=== PATIENT | male | born 1965 | race Caucasian/White ===

== ENCOUNTER 2018-11-24 14:51 | Emergency (ER) | payer MEDICARE, MEDICAID ==
[~2018-11-24] VITALS: Ht 182.9 cm; Wt 81.6 kg
--- NOTE | 2018-11-24 15:01 | NUR ---
BIB BY SELF 53 YEAR OLD MALE C/O COUGH X2 MONTHS, SOB WORSE AT NIGHT, BODY ACHES, WEAKNESS. ALERT AND ORIENTED X4, BREATHING EVEN AND UNLABORED. SKIN WARM TO [facility] AND INTACT. AWAITING TO BE SEEN BY .
[2018-11-24] MEDS ORDERED: ACETAMINOPHEN ES 500 MG TABLET ONE (16:17)
[2018-11-24] MEDS ORDERED: ACETAMINOPHEN ES 500 MG TABLET PO ONE (16:30)
--- NOTE | 2018-11-24 17:13 | NUR ---
Patient discharged to home in stable condition. Written and verbal after care instructions given. Patient verbalizes understanding of instruction.
[2018-11-24 17:15] VITALS: BP 140/80
== END 2018-11-24 17:17 | disposition home or self-care (01) ==
LOC: ER 14:57
DX: J40 Bronchitis, not specified as acute or chronic (principal); I12.0 Hypertensive chronic kidney disease with stage 5 chronic kidney disease or end stage renal disease; N18.6 End stage renal disease; Z99.2 Dependence on renal dialysis; Z94.0 Kidney transplant status
CPT/HCPCS: 71046; 99283; A4606

== ENCOUNTER 2024-11-29 12:28 | Inpatient (IN) | payer MEDICARE, OTHER ==
[~2024-11-29] VITALS: Ht 172.7 cm; Wt 84.4 kg
[2024-11-29] MEDS ORDERED: GELATIN SPONGE,ABSORBABLE 1 SPONGE SPONGE TP ONE (15:11)
[2024-11-29] MEDS: GELATIN SPONGE,ABSORBABLE 1 SPONGE SPONGE TP ONE (15:34)
[2024-11-29] MEDS ORDERED: CARV12.52 PO (15:59)
[2024-11-29] MEDS ORDERED: SEVE800T28 PO (15:59)
[2024-11-29] MEDS ORDERED: HYDR-4076 PO (15:59)
[2024-11-29] MEDS ORDERED: TAMS-12 PO (15:59)
[2024-11-29] MEDS ORDERED: ERGO500093 PO (15:59)
[2024-11-29] MEDS ORDERED: FAMO20TA8 PO (15:59)
[2024-11-29] MEDS ORDERED: ATOR20TA PO (15:59)
[2024-11-29 16:07] LABS: BASOPHILS % (AUTO) 1.1 % (0.0-2.0); EOSINOPHILS % (AUTO) 3.5 % (0.0-6.0); HEMATOCRIT 31 % (39-51); HEMOGLOBIN 10.5 g/dL (13.5-17.5); LYMPHOCYTES % (AUTO) 34.1 % (20.0-44.0); MEAN CORPUSCULAR HEMOGLOBIN 33 PG (26.0-33.0); MEAN CORPUSCULAR HGB CONC 34 g/dl (31.0-36.0); MEAN CORPUSCULAR VOLUME 96 fL (80-96); MONOCYTES % (AUTO) 12.8 % (2.0-12.0); NEUTROPHILS % (AUTO) 48.5 % (43.0-81.0); PLATELET COUNT (AUTO) 156 K/uL (150-450); RED BLOOD CELL COUNT(AUTO) 3.23 MIL/uL (4.5-6.0); RED CELL DISTRIBUTION WIDTH 13.4 % (11.5-15.0); WHITE BLOOD COUNT (AUTO) 5.3 K/uL (4.3-11.0)
[2024-11-29 16:08] LABS: BASOPHILS # (AUTO) 0.1 K/uL (0.0-0.2); EOSINOPHILS # (AUTO) 0.2 K/uL (0.0-0.7); LYMPHOCYTES # (AUTO) 1.8 K/uL (0.8-4.8); MONOCYTES # (AUTO) 0.7 K/uL (0.1-1.30); NEUTROPHILS # (AUTO) 2.5 K/uL (1.8-8.9)
[2024-11-29 16:23] LABS: CALCIUM, SERUM 8.6 mg/dL (8.5-10.1)
[2024-11-29 16:26] LABS: CREATININE 13.4 mg/dL (0.6-1.3); POTASSIUM 6.6 mmol/L (3.5-5.1)
[2024-11-29] MEDS ORDERED: ERGOCALCIFEROL (VITAMIN D 2) 50,000 UNIT CAPSULE PO SCH (16:30)
[2024-11-29 16:35] LABS: ALBUMIN 3.4 g/dL (3.4-5.0); BILIRUBIN,TOTAL 0.9 mg/dL (0.2-1.0); TOTAL PROTEIN, SERUM 7.7 g/dL (6.4-8.2)
[2024-11-29] MEDS ORDERED: SODIUM BICARBONATE SYR 50 MEQ/50 ML DISP.SYRIN ONE (16:46)
[2024-11-29] MEDS ORDERED: CALCIUM CHLORIDE 1,000 MG/10 ML DISP.SYRIN ONE (16:46)
[2024-11-29] MEDS ORDERED: SODIUM ZIRCONIUM CYCLOSILICATE 10 GM POWD.PACK ONE (16:46)
[2024-11-29] MEDS ORDERED: ALBUTEROL FS 2.5 MG/3 ML VIAL.NEB ONE (16:48)
[2024-11-29 16:50] VITALS: O2SAT 100
[2024-11-29] MEDS ORDERED: SODIUM POLYSTYRENE SULFONATE 15 G/60 ML BOTTLE ONE (16:50)
[2024-11-29] MEDS: ALBUTEROL FS 2.5 MG/3 ML VIAL.NEB CONTNEB ONE (16:50)
[2024-11-29] MEDS ORDERED: Z GUARD REMEDY 4 OZ OINT TP PRN (17:00)
[2024-11-29] MEDS ORDERED: FUROSEMIDE 40 MG/4 ML VIAL IV ONE (17:00)
[2024-11-29] MEDS: CALCIUM CHLORIDE 1,000 MG/10 ML DISP.SYRIN IV ONE (17:00)
[2024-11-29] MEDS: DEXTROSE 50%-WATER 50 ML DISP.SYRIN IVP ONE (17:00)
[2024-11-29] MEDS: SODIUM BICARBONATE SYR 50 MEQ/50 ML DISP.SYRIN IV ONE (17:00)
[2024-11-29] MEDS ORDERED: ONDANSETRON HCL/PF 4 MG/2 ML VIAL IVP PRN (17:00)
[2024-11-29] MEDS ORDERED: INSULIN REGULAR, HUMAN 100 UNIT/ML 10 ML VIAL IV ONE (17:00)
[2024-11-29] MEDS ORDERED: DEXTROSE 50%-WATER 50 ML DISP.SYRIN IV ONE (17:00)
[2024-11-29] MEDS: INSULIN REGULAR, HUMAN 100 UNIT/ML 10 ML VIAL IV ONE (17:00)
[2024-11-29] MEDS ORDERED: MAG HYDROX/AL HYDROX/SIMETH 30 ML UDC PO PRN (17:00)
[2024-11-29] MEDS ORDERED: ACETAMINOPHEN 325 MG TABLET PO PRN (17:00)
[2024-11-29] MEDS ORDERED: MAGNESIUM HYDROXIDE 30 ML UDC PO PRN (17:00)
[2024-11-29] MEDS ORDERED: HYDROCODONE/APAP 5/325MG TABLET PO PRN (17:00)
[2024-11-29] MEDS: SODIUM ZIRCONIUM CYCLOSILICATE 10 GM POWD.PACK PO ONE (17:01)
[2024-11-29 17:05] VITALS: O2SAT 100
[2024-11-29] MEDS ORDERED: LIDOCAINE 0.5%-EPI 1:200,000 50 ML VIAL ONE (17:05)
[2024-11-29] MEDS: SODIUM POLYSTYRENE SULFONATE 15 G/60 ML BOTTLE PO ONE (17:22)
[2024-11-29] MEDS: CARVEDILOL 12.5 MG TABLET PO SCH (19:12)
[2024-11-29] MEDS: hydrALAZINE HCL 25 MG TABLET PO SCH (19:12)
[2024-11-29] MEDS: SEVELAMER CARBONATE 800 MG TABLET PO SCH (19:24)
[2024-11-29] MEDS: FAMOTIDINE (20 MG) 20 MG TABLET PO SCH (19:24)
[2024-11-29 20:00] VITALS: BP 136/89; TEMP 97.9; O2SAT 96
[2024-11-29] MEDS: TAMSULOSIN 0.4 MG CAP.SR.24H PO SCH (21:50)
[2024-11-29] MEDS: ATORVASTATIN 10 MG TABLET PO SCH (21:51)
[2024-11-30] VITALS: BP 150/85; TEMP 97.9; O2SAT 97
[2024-11-30 04:00] VITALS: BP 124/76; TEMP 98.2; O2SAT 95
[2024-11-30 07:25] LABS: BASOPHILS % (AUTO) 0.6 % (0.0-2.0); EOSINOPHILS # (AUTO) 0.2 K/uL (0.0-0.7); EOSINOPHILS % (AUTO) 4.5 % (0.0-6.0); HEMATOCRIT 27 % (39-51); HEMOGLOBIN 9.3 g/dL (13.5-17.5); LYMPHOCYTES # (AUTO) 1.7 K/uL (0.8-4.8); MEAN CORPUSCULAR HEMOGLOBIN 33 PG (26.0-33.0); MEAN CORPUSCULAR HGB CONC 34 g/dl (31.0-36.0); MEAN CORPUSCULAR VOLUME 96 fL (80-96); MONOCYTES # (AUTO) 0.6 K/uL (0.1-1.30); MONOCYTES % (AUTO) 12.3 % (2.0-12.0); NEUTROPHILS # (AUTO) 2.6 K/uL (1.8-8.9); NEUTROPHILS % (AUTO) 49.6 % (43.0-81.0); PLATELET COUNT (AUTO) 135 K/uL (150-450); RED BLOOD CELL COUNT(AUTO) 2.84 MIL/uL (4.5-6.0); WHITE BLOOD COUNT (AUTO) 5.3 K/uL (4.3-11.0)
[2024-11-30] MEDS: PANTOPRAZOLE 40 MG TABLET.DR PO SCH (07:30)
[2024-11-30 07:50] LABS: CALCIUM, SERUM 8.3 mg/dL (8.5-10.1); MAGNESIUM 2.5 mg/dL (1.8-2.4); PHOSPHORUS 6.3 mg/dL (2.5-4.9)
[2024-11-30 07:52] LABS: CREATININE 14.7 mg/dL (0.6-1.3)
[2024-11-30 08:00] VITALS: BP 146/87; TEMP 97.9; O2SAT 97
[2024-11-30] MEDS ORDERED: ANESTHESIA TRAY IN PYXIS 1 EA TRAY MC ONE (09:48)
[2024-11-30] MEDS ORDERED: HEPARIN SODIUM, PORCINE 1,000 UNIT/ML VIAL ONE (09:49)
[2024-11-30] MEDS ORDERED: ROPIVACAINE HCL 0.5% 5 MG/ML 30ML VIAL ONE (09:49)
[2024-11-30] MEDS ORDERED: LIDOCAINE HCL/MPF 1% 30 ML VIAL IJ ONE (09:49)
[2024-11-30] MEDS ORDERED: CELLULOSE,OXIDIZED 1 EA PACK MC ONE (09:49)
[2024-11-30] MEDS ORDERED: CELLULOSE,OXIDIZED 1 EACH EACH MC ONE (09:50)
[2024-11-30] MEDS ORDERED: CELLULOSE,OXIDIZED 1 PKT EACH MC ONE (09:50)
[2024-11-30] MEDS ORDERED: LABETALOL HCL IV 100MG VIAL ONE (12:32)
[2024-11-30] MEDS ORDERED: HEPARIN SODIUM, PORCINE 5000 UNITS/1 ML VIAL ONE (13:03)
[2024-11-30] MEDS ORDERED: POLYMYXIN B SULFATE 500,000 UNITS ONE (14:10)
[2024-11-30] MEDS ORDERED: protAMINE SULFATE 10 MG/ML VIAL IV ONE (14:12)
[2024-11-30] MEDS: HYDROCODONE/APAP 5/325MG TABLET PO PRN (15:53)
[2024-11-30 16:00] VITALS: BP 145/83; TEMP 97.3; O2SAT 97
[2024-11-30] MEDS: ANCEF 1 GM/50 ML D5W IV SCH (19:59)
[2024-11-30 20:00] VITALS: BP 102/67; TEMP 97.9; O2SAT 99
[2024-12-01] VITALS: BP 113/70; TEMP 98.1; O2SAT 99
[2024-12-01 04:00] VITALS: BP 130/76; TEMP 98.2; O2SAT 96
[2024-12-01 07:22] LABS: CALCIUM, SERUM 8.2 mg/dL (8.5-10.1); POTASSIUM 4.9 mmol/L (3.5-5.1)
[2024-12-01 08:00] VITALS: BP 130/83; TEMP 98.4; O2SAT 95
[2024-12-01 08:05] LABS: CREATININE 12.7 mg/dL (0.6-1.3)
[2024-12-01 08:26] VITALS: BP 135/76
[2024-12-02 04:10] LABS: HEPATITIS B CORE AB, TOTAL Negative (Negative); HEPATITIS B SURFACE AB Non Reactive (.)
== END 2024-12-01 13:32 | disposition home health service (06) | DRG 252 ==
LOC: ER 12:28 → MEDSG1 17:37 → TELE1 17:41
PROVIDERS: ADMIT Nurse Practitioner Acute Care; ATTEND Student in an Organized Health Care Education/Training Program
PROC: 05LY0ZZ Occlusion of Upper Vein, Open Approach (ICD-10-PCS; 2024-11-29)
PROC: 05WY0JZ Revision of Synthetic Substitute in Upper Vein, Open Approach (ICD-10-PCS; principal; 2024-11-30)
PROC: 03WY0JZ Revision of Synthetic Substitute in Upper Artery, Open Approach (ICD-10-PCS; 2024-11-30)
PROC: 5A1D70Z Performance of Urinary Filtration, Intermittent, Less than 6 Hours Per Day (ICD-10-PCS; 2024-11-30)
DX: T82.838A Hemorrhage due to vascular prosthetic devices, implants and grafts, initial encounter (principal); N18.6 End stage renal disease; I12.0 Hypertensive chronic kidney disease with stage 5 chronic kidney disease or end stage renal disease; Y71.2 Prosthetic and other implants, materials and accessory cardiovascular devices associated with adverse incidents; Z99.2 Dependence on renal dialysis; Y84.8 Other medical procedures as the cause of abnormal reaction of the patient, or of later complication, without mention of misadventure at the time of the procedure; Y92.89 Other specified places as the place of occurrence of the external cause; E78.5 Hyperlipidemia, unspecified; E87.5 Hyperkalemia; N40.0 Benign prostatic hyperplasia without lower urinary tract symptoms; Z79.899 Other long term (current) drug therapy; D63.8 Anemia in other chronic diseases classified elsewhere; D50.0 Iron deficiency anemia secondary to blood loss (chronic); N25.0 Renal osteodystrophy
CPT/HCPCS: 36415; 80048-TC; 80053-TC; 82962-TC; 83735-TC; 84100-TC; 85025-TC; 86704; 86706; 87340; 90935-TC; 94799-TC; A4223; C1768; C1769; G0378; J0360; J0690; J1200; J1644; J1815; J2704; J2720; J2795; J3490; J7030; J7050; J7060

== ENCOUNTER 2025-01-04 14:02 | Emergency (ER) | payer MEDICARE, OTHER ==
[~2025-01-04] VITALS: Ht 182.9 cm; Wt 86.6 kg
[~2025-01-04 14:02] MED LIST: ATOR20TA PO; CARV12.52 PO; ERGO500093 PO; FAMO20TA8 PO; HYDR-4076 PO; SEVE800T28 PO; TAMS-12 PO
[2025-01-04 15:20] LABS: BASOPHILS # (AUTO) 0.1 K/uL (0.0-0.2); BASOPHILS % (AUTO) 1.1 % (0.0-2.0); EOSINOPHILS # (AUTO) 0.1 K/uL (0.0-0.7); EOSINOPHILS % (AUTO) 2.8 % (0.0-6.0); HEMATOCRIT 26 % (39-51); HEMOGLOBIN 9.3 g/dL (13.5-17.5); LYMPHOCYTES # (AUTO) 0.8 K/uL (0.8-4.8); LYMPHOCYTES % (AUTO) 14.6 % (20.0-44.0); MEAN CORPUSCULAR HEMOGLOBIN 34 PG (26.0-33.0); MEAN CORPUSCULAR HGB CONC 35 g/dl (31.0-36.0); MEAN CORPUSCULAR VOLUME 97 fL (80-96); MONOCYTES # (AUTO) 0.7 K/uL (0.1-1.30); MONOCYTES % (AUTO) 13.5 % (2.0-12.0); NEUTROPHILS # (AUTO) 3.7 K/uL (1.8-8.9); PLATELET COUNT (AUTO) 127 K/uL (150-450); RED BLOOD CELL COUNT(AUTO) 2.72 MIL/uL (4.5-6.0); RED CELL DISTRIBUTION WIDTH 13.6 % (11.5-15.0); WHITE BLOOD COUNT (AUTO) 5.4 K/uL (4.3-11.0)
[2025-01-04 15:31] LABS: CALCIUM, SERUM 8.4 mg/dL (8.5-10.1); CARBON DIOXIDE 25 mmol/L (21-32); CHLORIDE 104 mmol/L (98-107); GLUCOSE 95 mg/dL (74-106); POTASSIUM 5.5 mmol/L (3.5-5.1); SODIUM SERUM 142 mmol/L (136-145); UREA NITROGEN, BLOOD 37 mg/dL (7-18)
[2025-01-04] MEDS ORDERED: ACETAMINOPHEN 650 MG/20.3 ML UDC ONE (15:40)
[2025-01-04 15:43] LABS: ALANINE AMINOTRANSFERASE 21 U/L (12-78); ALBUMIN 3.6 g/dL (3.4-5.0); ALKALINE PHOSPHATASE 373 U/L (46-116); ASPARTATE AMINOTRANSFERASE 24 U/L (15-37); BILIRUBIN,DIRECT 0.4 mg/dL (0.0-0.2); BILIRUBIN,TOTAL 1.1 mg/dL (0.2-1.0); NT-PRO BNP 21190 pg/mL (0-125)
[2025-01-04] MEDS: ACETAMINOPHEN 650 MG/20.3 ML UDC PO ONE (15:51)
[2025-01-04 16:05] LABS: BASOPHILS % (MANUAL) 0 % (0.0-2.0); EOSINOPHILS % (MANUAL) 0 % (0-4); LYMPHOCYTES % (MANUAL) 17 % (16-48); MONOCYTES % (MANUAL) 10 % (0-11.0); NEUTROPHILS % (MANUAL) 73 (42-76)
[2025-01-04 16:08] LABS: PLATELET ESTIMATE DECREASED
[2025-01-04 16:13] LABS: ANISOCYTOSIS 1+
[2025-01-04 16:51] LABS: APPEARANCE,URINE CLEAR (CLEAR); BILIRUBIN,URINE NEGATIVE (NEGATIVE); BLOOD, URINE NEGATIVE Ery/uL (NEGATIVE); COLOR,URINE YELLOW (YELLOW); KETONES,URINE NEGATIVE (NEGATIVE); LEUKOCYTE ESTERASE ,URINE NEGATIVE (NEGATIVE); NITRITE, URINE NEGATIVE (NEGATIVE); PROTEIN,URINE 2+ mg/dl (NEGATIVE); UGLUCOSE TRACE mg/dL (NEGATIVE); UROBILINOGEN,URINE 0.2 EU/dL (0.2)
[2025-01-04] MEDS ORDERED: ACET325C7 PO (17:01)
[2025-01-04 17:02] LABS: ADD URINE CULTURE NO; BACTERIA,URINE Few /HPF (None Seen); RBC,URINE 0-2 /HPF (0-2); SQUAMOUS EPITHELIAL CELL,UR Few /HPF (None Seen); WBC,URINE 0-2 /HPF (0-3)
[2025-01-04 17:30] VITALS: BP 149/83; TEMP 98.9; O2SAT 97
[2025-01-04] MEDS ORDERED: BENZ-13 PO (17:30)
== END 2025-01-04 17:31 | disposition home or self-care (01) ==
LOC: ER 14:07
DX: J21.0 Acute bronchiolitis due to respiratory syncytial virus (principal); N18.6 End stage renal disease; E11.22 Type 2 diabetes mellitus with diabetic chronic kidney disease; I12.0 Hypertensive chronic kidney disease with stage 5 chronic kidney disease or end stage renal disease; Z79.899 Other long term (current) drug therapy; Z99.2 Dependence on renal dialysis; Z20.822 Contact with and (suspected) exposure to COVID-19
CPT/HCPCS: 36415; 71045-TC; 80048-TC; 80076-TC; 81001; 83880; 84484-TC; 85025-TC